=== PATIENT | male | born 1955 | race African-American/Black ===

== ENCOUNTER 2016-11-15 20:00 | Emergency (ER) | payer BC | END 2016-11-15 20:02 | disposition home or self-care (01) | LOC: ER 20:00 | PROC: 0Y9J3ZZ Drainage of Left Lower Leg, Percutaneous Approach (ICD-10-PCS; principal; 2016-11-15) | DX: M79.675 Pain in left toe(s) (principal); I10 Essential (primary) hypertension | CPT/HCPCS: 99283 ==